=== PATIENT | female | born 1980 | race Caucasian/White ===

== ENCOUNTER 2019-04-12 16:16 | Emergency (ER) | payer MEDICARE ==
[~2019-04-12] VITALS: Ht 160 cm; Wt 68.0 kg
[~2019-04-12 16:16] MED LIST: PRED10TA PO; QUET400T4 PO; VENL150C PO
[2019-04-12 17:06] VITALS: BP 114/66
[2019-04-12] MEDS ORDERED: SUBLIMAZE IV STA (17:08)
[2019-04-12] MEDS ORDERED: PREDNISONE PO STA (17:12)
--- NOTE | 2019-04-12 17:13 | ER.PDOC ---
General Chief Complaint: Abdomen Pain Stated Complaint: ABD PAIN Time seen by MD: 17:00 Source: patient Exam Limitations: no limitations History of Present Illness Initial Comments out of meds for 4 days Timing/Duration: 24 hours Severity/Quality: moderate Allergies: Coded Allergies: bupropion HCl (Unverified Allergy, Unknown, 04/05/14) carbamazepine (Unverified Allergy, Unknown, 04/05/14) divalproex sodium (Unverified Allergy, Unknown, 04/05/14) Home Meds Reported Medications Venlafaxine Hcl (EFFEXOR XR) 150 Mg Cap.er.24h, 150 MG PO DAILY 04/05/14 Quetiapine Fumarate (SEROQUEL) 400 Mg Tablet, 1200 MG PO HS, TABLET 04/05/14 Prednisone (PREDNISONE) 10 Mg Tablet, 10 MG PO DAILY, TABLET 04/05/14 Vital Signs First Vital Signs Date Time Temp Pulse Resp B/P (MAP) Pulse Ox O2 Delivery O2 Flow Rate FiO2 04/12/19 17:03 98.4 76 18 98 Room Air 98.4 Last Vital Signs Date Time Temp Pulse Resp B/P (MAP) Pulse Ox O2 Delivery O2 Flow Rate FiO2 04/12/19 17:03 98.4 76 18 98 Room Air 98.4 Past Medical History Medical History: other Surgical History: cholecystectomy, , other LMP (females 10-50): 3 weeks Social History Smoking: cigarettes, less than 1 pack/day Alcohol Use: occassionally Drug Use: none Reviewed Nursing Reviewed: Vital Signs, Abn. Noted All Other Systems: Reviewed and Negative Physical Exam General Appearance: No Apparent Distress, WD/WN HEENT: PERRL/EOMI, Normal ENT Inspection, TMs Normal, Pharynx Normal Neck: Non-Tender, Full Range of Motion, Supple, Normal Inspection Respiratory: chest non-tender, lungs clear, normal breath sounds, no respiratory distress, no accessory muscle use Cardiovascular: Normal Peripheral Pulses, Regular Rate, Rhythm, No Edema, No Gallop, No JVD, No Murmur Gastrointestinal: Tenderness Back: Normal Inspection, No CVA Tenderness, No Vertebral Tenderness Extremities: Normal Range of Motion, Non-Tender, Normal Inspection, No Pedal Edema, No Calf Tenderness, Normal Capillary Refill, Pelvis Stable 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, No Motor/Sensory Deficits, Alert, Normal Mood/Affect, Oriented x 3 Skin: Normal Color, Warm/Dry Lymphatic: No Adenopathy Results/Orders Results/Orders Vital Signs Date Time Temp Pulse Resp B/P (MAP) Pulse Ox O2 Delivery O2 Flow Rate FiO2 04/12/19 17:03 98.4 76 18 98 Room Air 98.4 Course Vitals & review Data Vital Sign - Last 24 Hours 04/12/19 17:03 Temp 98.4 98.4 Pulse 76 Resp 18 Pulse Ox 98 O2 Delivery Room Air O2 Sat by Pulse Oximetry: 98 Departure Time of Disposition: 19:00 Disposition: 01 HOME, SELF-CARE Impression: Primary Impression: Ulcerative (chronic) enterocolitis Condition: Improved Referrals: LINDA KING MD (PCP) PRIMARY CARE PROVIDER Duration or Time Spent with Pa: 1 hr ZHANNA PINEDA MD Apr 12, 2019 17:13
[2019-04-12 17:20] LABS: BASOPHIL % 0.2 % (0.0-0.2); EOSINOPHIL # 0.1 10^3/uL (0.0-0.2); EOSINOPHIL % 0.6 % (0.0-5.0); HEMOGLOBIN 12.7 g/dL (12.0-15.0); LYMPHOCYTES % 37.9 % (24.0-44.0); MEAN CELL HGB 30.5 pg (26-34); MEAN CORP VOLUME 89.7 fL (78-100); MEAN PLATELET VOLUME 9.5 fL (7.8-11.0); MONOCYTES # 0.5 10^3/uL (0.3-0.8); MONOCYTES % 5.1 % (5.0-12.0); RED CELL DISTRIBUTION WIDTH 14.1 % (11.5-14.5); WHITE BLOOD CELL 10.7 10^3/uL (4.5-11.0)
[2019-04-12] MEDS ORDERED: NS 1000ML 1,000 ML IV ONE (17:30)
[2019-04-12 17:44] LABS: HCG QUALITATIVE -RESTRICTLAB NEGATIVE (NEGATIVE)
[2019-04-12 18:22] LABS: CALCIUM 9.1 mg/dL (8.4-10.5); CARBON DIOXIDE 25.2 mmol/L (20.0-32)
--- NOTE | 2019-04-12 18:23 | DIREP ---
PROCEDURE:CT ABDOMEN/PELVIS W/O CONTRAST COMPARISON:None. INDICATIONS:abdominal pain, h/o uc TECHNIQUE:Axial images were created through the abdomen and pelvis without intravenous contrast material. No oral contrast was administered. Sagittal and coronal reconstructions were performed from source images. FINDINGS: LUNG BASES:Minimal atelectasis in the lung bases. LIVER:No hepatic lesion on noncontrast exam. BILIARY:Cholecystectomy, no intra or extrahepatic biliary dilation. PANCREAS:Unremarkable. SPLEEN:Normal, nonenlarged. KIDNEYS:No renal mass on noncontrast exam. No hydronephrosis or collecting system stone identified. ADRENALS:Normal. AORTA/VASCULAR:Normal. No aneurysm. RETROPERITONEUM:No adenopathy or mass. BOWEL/MESENTERY:No evidence of obstruction. Appendix normal. Limited soft tissue contrast at the level of the anus on CT, also noncontrast examination. Mild circumferential thickening of the lower rectal wall. Question scarring versus fistulous tracts along the left gluteal fold. Colon remains, there is colonic anastomotic suture near midline in the sigmoid colon. ABDOMINAL WALL:Normal. No mass or hernia. URINARY BLADDER: Inherently limited evaluation of the wall; unremarkable for level of distension. PELVIS:Uterus present. Benign-appearing cyst in the left adnexa measuring 2.8 cm. No adenopathy. BONES:No bony lesion or fracture. OTHER:No free air. Small free fluid in the pelvis. CONCLUSION: 1. Question scarring versus fistulous tracts along the left gluteal fold. Mild circumferential thickening of the lower rectal wall. 2. Evidence of prior sigmoid colonic surgery with suture seen near midline. 3. Benign-appearing cyst in the left adnexum measuring 2.8 cm. Small free fluid in the pelvis. Dictated by: Radha Perez MD on 04/12/2019 at 06:13 PM
[2019-04-12] MEDS ORDERED: ZOFRAN ONE (18:53)
[2019-04-12] MEDS ORDERED: PREDNISONE ONE (18:53)
[2019-04-12] MEDS ORDERED: NS 1000ML 1,000 ML ONE (18:53)
[2019-04-12] MEDS ORDERED: SUBLIMAZE ONE (18:54)
[2019-04-12 19:32] LABS: BILIRUBIN,URINE NEGATIVE (NEGATIVE); UROBILINOGEN,URINE NORMAL (NEGATIVE)
[2019-04-12 19:48] LABS: APPEARANCE,URINE HAZY (CLEAR); UA COLOR YELLOW (YELLOW)
[2019-04-12 20:50] VITALS: BP 109/63
--- NOTE | 2019-04-12 20:50 | NUR ---
Discharge: Discharge instructions explained and pt voiced understanding. IV d/c with tip intact. Pt ambulated out of Ed with family.
[2019-04-12 20:53] VITALS: BP 114/66
== END 2019-04-12 20:50 | disposition home or self-care (01) ==
LOC: ER 16:16
DX: K51.00 Ulcerative (chronic) pancolitis without complications (principal); F17.210 Nicotine dependence, cigarettes, uncomplicated; Z79.899 Other long term (current) drug therapy; Z90.49 Acquired absence of other specified parts of digestive tract
CPT/HCPCS: 36415; 74176; 80053; 81000; 82150; 83690; 84703; 85025; 85610; 85651; 85730; 86140; 86677; 87086; 96374; 99285; J2405; J3010; J7030; J7512; 96361